=== PATIENT | female | born 1955 | race Caucasian/White ===

== ENCOUNTER 2017-01-21 12:25 | Emergency (ER) | payer OTHER ==
--- NOTE | ~2017-01-21 | CR72 ---
[facility] A Service of [facility] / [facility] RADIOLOGY TEXT RESULTS PATIENT: DUSTIN MCCARTHY LOCATION: SED : 59 UNIT #: [id number] AGE: [address]: Clive Burnett MD SEX: F ORDER DR: [id number] [place] [id number] E MR#: [id number] Acc #: [id number] NAME: DUSTIN MCCARTHY : 1955 SEX: F STUDY DATE/TIME: 01/21/2017 13:15 UNIT: SED ROOM: STUDY DESCRIPTION: CR Chest Single View Portable Attending Physician: Clive Burnett M.D. Ordering Physician: Clive Burnett M.D. Primary Care Physician: No Primary Care Physician MEDICAL IMAGING REPORT This report is preliminary unless electronic signature is present. EXAM Chest portable, 18:17 13:15 hours. HISTORY 61-year-old with 3-day history of shortness of air and inability to urinate. History of uterine cancer. COMPARISON None. FINDINGS Portable upright chest demonstrates patient to be rotated to the right. There is oxygen tubing and mask device over the right apex. Heart size is within normal limits. There is patchy density right lung base greater than left lung base. There is hyperlucency in the upper lungs, likely representing emphysematous changes. There is a linear line at the left apex which could represent a pneumothorax. A repeat film with movement of the oxygen tubing device external to the patient is recommended to evaluate for right apical pneumothorax. IMPRESSION 1. Right basilar airspace change. Minimal density at the left base. Findings favor the presence of pneumonia. 2. There is emphysematous change of hyperlucency in the upper lungs. There is oxygen tubing device or mass device obscuring the right lung apex. There is a linear line present which could represent an apical pneumothorax. Repeat chest film without rotation and with movement of the oxygen device from the right lung apex is recommended to evaluate for pneumothorax. Dictated by... Michela Ashley M.D. [facility] A Service of [facility] / [facility] RADIOLOGY TEXT RESULTS PATIENT: DUSTIN MCCARTHY LOCATION: [facility] [place] : 59 UNIT #: [id number] AGE: [address]: Clive Burnett MD SEX: F ORDER DR: THIS IS AN ELECTRONICALLY VERIFIED REPORT Michela Ashley M.D. at 01/21/2017 2:30 PM RAMANDEEP/eboni TD: 01/21/2017 13:40 JOB #: [id number] MEDICAL IMAGING REPORT Page 1 of 1
--- NOTE | ~2017-01-21 | CR72 ---
[facility] A Service of [facility] & [facility] RADIOLOGY TEXT RESULTS PATIENT: DUSTIN MCCARTHY LOCATION: SED : 59 UNIT #: [id number] AGE: [address]: Clive Burnett MD SEX: F ORDER DR: [id number] [place] [id number] E MR#: [id number] Acc #: [id number] NAME: DUSTIN MCCARTHY : 1955 SEX: F STUDY DATE/TIME: 01/21/2017 14:44 UNIT: SED ROOM: STUDY DESCRIPTION: CR Chest Single View Portable Attending Physician: Clive Burnett M.D. Ordering Physician: Clive Burnett M.D. Primary Care Physician: No Primary Care Physician MEDICAL IMAGING REPORT This report is preliminary unless electronic signature is present. EXAM Portable chest, 01/21/2017. INDICATIONS Shortness of air for 3 days with inability to urinate. History of uterine cancer. Repeat chest film recommended due to artifact over the right apex. FINDINGS AP portable chest compared with earlier today. Redemonstrated is emphysema with bullous change in the right upper lobe. No pneumothorax on either side of the chest. Infiltrate at the right base is stable. Dictated by... Joseph Hanna Jr., M.D. THIS IS AN ELECTRONICALLY VERIFIED REPORT Joseph Hanna Jr., M.D. at 01/22/2017 8:49 AM PATRICA/lev TD: 01/21/2017 21:31 JOB #: [id number] MEDICAL IMAGING REPORT Page 1 of 1
--- NOTE | ~2017-01-21 | EKG ---
PATIENT: DUSTIN MCCARTHY UNIT #: [id number] Ventricular Rate: 115 BPM Atrial Rate: 115 BPM P-R Interval: 148 ms QRS Duration: 66 ms Q-T Interval: 314 ms QTC Calculation(Bezet): 434 ms P Mack: 47 degrees Calculated R Mack: -54 degrees Calculated T Mack: 42 degrees Diagnosis Line: Sinus tachycardia Diagnosis Line: Left axis deviation Diagnosis Line: Inferior infarct , age undetermined Diagnosis Line: Abnormal ECG Diagnosis Line: No previous ECGs available Diagnosis Line: Confirmed by ED NEVAREZ MD ([id number]) on Diagnosis Line: 01/22/2017 12:38:49 PM INTERPRETING MD: ROQUE CHAIREZ
[2017-01-21 13:26] LABS: BASOPHIL% 0.4 % (0-2.5); EOSINOPHIL% 0.1 % (0.0-7.0); HEMATOCRIT 36.2 % (35.0-45.0); HEMOGLOBIN 11.9 gm/dL (12.0-16.0); LYMPHOCYTE# 0.4 X10e3 (1.0-3.5); LYMPHOCYTE% 3.5 % (17.0-45.0); MEAN CELL VOLUME 81.4 FL (83-96); MEAN CORPUSCULAR HEMOGLOBIN 26.7 PG (28-34); MEAN CORPUSCULAR HGB CONC 32.8 g/dL (30-36); MEAN PLATELET VOLUME 9.4 FL (6.5-11.5); MONOCYTE# 0.5 X10e3 (0-1.0); MONOCYTE% 4.5 % (3.0-12.0); NEUTROPHIL# 9.7 X10e3 (1.5-7.1); NEUTROPHIL% 91.5 % (40-75); PLATELET COUNT 243 X10e3 (140-420); RED BLOOD COUNT 4.45 X10e (3.90-5.30); RED CELL DISTRIBUTION WIDTH 15.7 % (11.0-15.5); WHITE BLOOD COUNT 10.6 X10e3 (4.0-10.5)
[2017-01-21 13:28] LABS: DIFF IND NO
[2017-01-21 13:43] LABS: ALBUMIN SERUM 3.8 g/dL (3.5-5.0); ALKALINE PHOSPHATASE 82 U/L (32-92); ALT (SGPT) 11 U/L (10-40); AST (SGOT) 19 U/L (10-42); BILIRUBIN,TOTAL 0.5 mg/dL (0.2-2.0); BLOOD UREA NITROGEN 15 mg/dL (9-23); BUN/CREATININE RATIO 18.75; CALCIUM SERUM 8.8 mg/dL (8.4-10.2); CARBON DIOXIDE 22 mmol/L (22-31); CHLORIDE 100 mmol/L (100-111); CREATININE SERUM 0.8 mg/dL (0.6-1.4); GLOM FILT RATE Estimated 80.8 mL/min (>60); GLUCOSE FASTING 142 mg/dL (70-110); POTASSIUM 3.5 mmol/L (3.5-5.1); PROTEIN TOTAL SERUM 7.7 g/dL (6.0-8.3); SODIUM 130 mmol/L (135-145)
[2017-01-21 13:46] LABS: BILIRUBIN, DIRECT <0.1 mg/dL (0.0-0.2); BILIRUBIN,INDIRECT 0.4 mg/dL (0.0-0.9)
[2017-01-21 13:57] LABS: MICRO INDICATED? NO; URINE APPEARANCE SL CLOUDY; URINE BILIRUBIN NEG (NEG); URINE BLOOD NEG (NEG); URINE COLOR YELLOW; URINE GLUCOSE NEG (NORM); URINE KETONE NEG (NEG); URINE LEUKOCYTE ESTERASE NEG (NEG); URINE NITRATE NEG (NEG); URINE PROTEIN NEG (NEG); URINE SOURCE CLEAN CATCH; URINE UROBILINOGEN 0.2 MG/DL (NORM)
[2017-01-23 10:19] LABS: POC - CKMB <1.0 ng/mL (0.0-7.9); POC - TROPONIN <0.05 ng/mL (<=0.05)
== END 2017-01-21 15:50 | disposition hospice, home (50) ==
LOC: SED 12:25
PROVIDERS: Emergency Medicine
DX: J18.8 Other pneumonia, unspecified organism (principal); R09.02 Hypoxemia; E78.5 Hyperlipidemia, unspecified; I10 Essential (primary) hypertension; J44.9 Chronic obstructive pulmonary disease, unspecified; F32.9 Major depressive disorder, single episode, unspecified; Z88.5 Allergy status to narcotic agent; Z88.0 Allergy status to penicillin
CPT/HCPCS: 36415; 71010; 80048; 80076; 81003; 82553; 83605; 83880; 84484; 85025; 87040; 93005; 94640; 96374; 99285; J2930; J3370